=== PATIENT | male | born 1985 | race Caucasian/White ===

== ENCOUNTER 2019-01-28 16:18 | Emergency (ER) | payer OTHER ==
[2019-01-28 16:36] VITALS: BP 138/79; PULSE 80; RESP 18; TEMP 98
[2019-01-28] MEDS ORDERED: PROPARACAINE 0.5% OPHTH DROPS 15 ML BTL LEFT EYE STA (19:07)
[2019-01-28] MEDS ORDERED: ACETAMINOPHEN TAB 500 MG TAB PO STA (20:04)
[2019-01-28] MEDS ORDERED: ERYTHROMYCIN 5 MG/GM OPHTH OINT 3.5 GM TUBE BOTH EYES STA (20:04)
[2019-01-28] MEDS ORDERED: IBUPROFEN 600 MG STARTER PACK 4 TAB BTL PO STA (20:04)
--- NOTE | 2019-01-28 20:11 | ED ---
Eye Problem HPI - General Chief complaint: Eye Problems Stated complaint: Metal in eye-[facility] Time Seen by Provider: 01/28/19 19:07 Source: patient, RN notes reviewed, old records reviewed Mode of arrival: ambulatory Limitations: no limitations - History of Present Illness Initial comments: Pt is a 33 year old male with piece of metal in L eye from work. Patient reports that [facility] was unable to get piece of metal out today. Denies visual changes. - Related Data Previous Rx's Medication Instructions Recorded Ibuprofen [Motrin] 600 mg PO Q6HR PRN #20 tab 02/22/16 Erythromycin Ophth Oint [Romycin 1 applic LEFT EYE QID #1 gm 01/28/19 Ophth Oint] Allergies Allergy/AdvReac Type Severity Reaction Status Date / Time No Known Allergies Allergy Verified 01/28/19 16:31 Review of Systems ROS Statement: Those systems with pertinent positive or pertinent negative responses have been documented in the HPI. ROS Other: All systems not noted in ROS Statement are negative. Past Medical History Past Medical History: No Reported History History of Any Multi-Drug Resistant Organisms: None Reported Past Surgical History: Hernia Repair, Orthopedic Surgery Additional Past Surgical History / Comment(s): hiatal hernia Past Psychological History: No Psychological Hx Reported Smoking Status: Never smoker Past Alcohol Use History: None Reported Past Drug Use History: None Reported General Exam Limitations: no limitations General appearance: alert, in no apparent distress Head exam: Present: atraumatic, normocephalic, normal inspection Eye exam: Present: normal appearance, PERRL, EOMI, conjunctival injection (L eye. foriegn body at 6 oclock. ). Absent: scleral icterus, periorbital swelling Course Vital Signs 01/28/19 16:32 Temperature 98 F Pulse Rate 80 Respiratory 18 Rate Blood Pressure 138/79 O2 Sat by Pulse 98 Oximetry Medical Decision Making - Medical Decision Making Foreign body was removed easily with jagdish brush. Discussed optho follow up and using antibiotic ointment. Disposition Clinical Impression: Eye foreign body Disposition: HOME SELF-CARE Condition: Good Instructions (If sedation given, give patient instructions): Eye Foreign Body (ED) Additional Instructions: Follow-up with ophthalmology. Return to the emergency department if any alarming signs or symptoms occur. Prescriptions: Erythromycin Ophth Oint [Romycin Ophth Oint] 1 applic LEFT EYE QID #1 gm Is patient prescribed a controlled substance at d/c from ED?: No Referrals: Yogi Randhawa MD [Primary Care Provider] - 1-2 days Darwin Uribe MD [STAFF PHYSICIAN] - 1-2 days Time of Disposition: 20:11
== END 2019-01-28 20:45 | disposition home or self-care (01) ==
LOC: EC 16:18
DX: T15.92XA Foreign body on external eye, part unspecified, left eye, initial encounter (principal); Y92.69 Other specified industrial and construction area as the place of occurrence of the external cause; Y99.0 Civilian activity done for income or pay
CPT/HCPCS: 65205; 99284

== ENCOUNTER 2021-01-15 17:56 | Emergency (ER) | payer OTHER ==
[2021-01-15 18:21] VITALS: BP 113/77; PULSE 81; RESP 2; TEMP 98.3
[2021-01-15] MEDS ORDERED: LIDOCAINE 1% INJ 10MG/ML (20 ML MDV) SQ ONE (19:11)
[2021-01-15] MEDS ORDERED: BACITRACIN ZINC 500 UNIT/GM OINT 28.4 GM TUBE TOPICAL ONE (19:35)
--- NOTE | 2021-01-15 19:38 | ED ---
Wound/Laceration HPI - General Chief Complaint: Wound/Laceration Stated Complaint: [facility]-finger lac Time Seen by Provider: 01/15/21 19:02 Source: patient, RN notes reviewed Mode of arrival: ambulatory Limitations: no limitations - History of Present Illness Initial Comments: 35-year-old male presents emergency Department with chief complaint of right hand finger laceration. Patient states that he was cutting a metal band states that he cut through his leather glove. Patient has a laceration to his second digit. His tetanus is up-to-date. Patient states his pain over the area of glass full range of motion. Patient states there is mild bleeding no other complaints - Related Data Previous Rx's Medication Instructions Recorded Ibuprofen [Motrin] 600 mg PO Q6HR PRN #20 tab 02/22/16 Erythromycin Ophth Oint [Romycin 1 applic LEFT EYE QID #1 gm 01/28/19 Ophth Oint] Allergies Allergy/AdvReac Type Severity Reaction Status Date / Time No Known Allergies Allergy Verified 01/15/21 18:21 Review of Systems ROS Statement: Those systems with pertinent positive or pertinent negative responses have been documented in the HPI. ROS Other: All systems not noted in ROS Statement are negative. Past Medical History Past Medical History: No Reported History History of Any Multi-Drug Resistant Organisms: None Reported Past Surgical History: Hernia Repair, Orthopedic Surgery Additional Past Surgical History / Comment(s): hiatal hernia Past Psychological History: No Psychological Hx Reported Smoking Status: Never smoker Past Alcohol Use History: Occasional Past Drug Use History: None Reported General Exam Limitations: no limitations General appearance: alert, in no apparent distress Head exam: Present: atraumatic, normocephalic, normal inspection Respiratory exam: Present: normal lung sounds bilaterally. Absent: respiratory distress, wheezes, rales, rhonchi, stridor Cardiovascular Exam: Present: regular rate, normal rhythm, normal heart sounds. Absent: systolic murmur, diastolic murmur, rubs, gallop, clicks Extremities exam: Present: other (Right hand second digit dorsal surface there is an irregular flap laceration that is 3 cm in total length, patient's full range of motion no tendon involvement) Course Vital Signs 01/15/21 18:18 Temperature 98.3 F Pulse Rate 81 Respiratory 2 L Rate Blood Pressure 113/77 O2 Sat by Pulse 98 Oximetry Procedures - Laceration Laceration #1 Consent Obtained: verbal consent Indication: laceration Site: hand ( Right hand second digit) Size (cm): 3 Description: flap, irregular Anesthetic Used: lidocaine 1%, without epi Anesthesia Technique: local infiltration Amount (mls): 3 Pre-repair: wound explored, irrigated extensively, deep structures intact Type of Sutures: nylon Size of Sutures: 4-0 Number of Sutures: 6 Patient Tolerated Procedure: well, no complications Medical Decision Making - Medical Decision Making [address] patient's full range of motion no tendon involvement have a recheck in 24 hours with [facility] return parameters were discussed. Disposition Clinical Impression: Laceration of finger, right Disposition: HOME SELF-CARE Condition: Stable Instructions (If sedation given, give patient instructions): Care For Your Sti tches (ED), Finger Laceration (ED) Additional Instructions: Have sutures removed in 10 days.Please return to the Emergency Department if symptoms worsen or any other concerns.. Is patient prescribed a controlled substance at d/c from ED?: No Referrals: Yogi Randhawa MD [Primary Care Provider] - 1-2 days Time of Disposition: 19:38
[2021-01-15] MEDS ORDERED: BACITRACIN OINT 1 EACH PACKET TOPICAL ONE (19:45)
== END 2021-01-15 19:56 | disposition home or self-care (01) ==
LOC: EC 17:56
DX: S61.210A Laceration without foreign body of right index finger without damage to nail, initial encounter (principal); W27.8XXA Contact with other nonpowered hand tool, initial encounter
CPT/HCPCS: 99282; 96372; 12002; J2001

== ENCOUNTER → 2021-01-25 | Outpatient (CLI) | payer OTHER ==
--- NOTE | 2021-01-25 17:34 | XR ---
EXAMINATION TYPE: XR hand complete RT DATE OF EXAM: 01/25/2021 COMPARISON: None HISTORY: Laceration proximal interphalangeal joint right index finger TECHNIQUE: Three-view right hand FINDINGS: Soft tissue injuries over the distal right index finger. No acute fractures evident. No rad iopaque foreign body within the index finger is evident. There may be a radiopaque foreign body withi n the subcutaneous tissues of the dorsal thumb. IMPRESSION: 1. Soft tissue injury at the distal index finger. No radiopaque foreign body at this level is eviden t. 2. No acute osseous abnormalities. 3. Chronic radiopaque foreign body may be over the dorsum of the proximal phalanx right thumb
== END | disposition home or self-care (01) ==
LOC: RADXRMAIN 17:13
PROVIDERS: ATTEND Emergency Medicine
DX: S61.211A Laceration without foreign body of left index finger without damage to nail, initial encounter (principal)

== ENCOUNTER 2021-05-17 16:18 | Emergency (ER) | payer OTHER ==
[2021-05-17 18:14] VITALS: TEMP 97.6
[2021-05-17] MEDS ORDERED: IBUPROFEN 600 MG STARTER PACK 4 TAB BTL PO STA (19:19)
[2021-05-17] MEDS ORDERED: CEPHALEXIN 500MG STARTER PACK 4 CAP BTL PO STA (19:19)
--- NOTE | 2021-05-17 20:45 | XR ---
EXAMINATION TYPE: XR foot limited RT DATE OF EXAM: 05/17/2021 COMPARISON: NONE HISTORY: 36 years Male. STUDY INDICATION GIVEN: Possible foreign body, lateral aspect plantar . TECHNIQUE: Frontal lateral radiographs of the right foot IMPRESSION: No radiopaque foreign bodies are appreciated in the area of concern or the rest of the foot. No acute osseous or articular abnormalities appreciated. Distal tibial cortical irregularity reflective of prior fracture and hardware.
[2021-05-17 20:56] VITALS: BP 136/82; PULSE 86; RESP 16
--- NOTE | 2021-05-17 21:01 | ED ---
Wound/Laceration HPI - General Source: patient Mode of arrival: ambulatory Limitations: no limitations <Tatiana Hills - Last Filed: 05/17/21 21:53> <Luna Flynn - Last Filed: 05/19/21 00:34> - General Chief Complaint: Wound/Laceration Stated Complaint: Brass shaving in R foot, [facility] Time Seen by Provider: 05/17/21 19:04 - History of Present Illness Initial Comments: 36 year-old male patient presents for evaluation of pain and redness to the right foot. States he believes he has a metal shaving stuck in the foot. States there were some on his sock two days ago. He works with metal shavings and wears boots. He reports pain to the lateral aspect of the right foot. Denies any fever or chills. Denies nausea or vomiting. States his last tetanus vaccine was 3-5 years ago. (Tatiana Hills) - Related Data Previous Rx's Medication Instructions Recorded Ibuprofen [Motrin] 600 mg PO Q6HR PRN #20 tab 02/22/16 Erythromycin Ophth Oint [Romycin 1 applic LEFT EYE QID #1 gm 01/28/19 Ophth Oint] Cephalexin [Keflex] 500 mg PO Q6H #40 cap 05/17/21 Ibuprofen [Motrin] 600 mg PO Q8HR PRN #30 tab 05/17/21 Allergies Allergy/AdvReac Type Severity Reaction Status Date / Time No Known Allergies Allergy Verified 05/17/21 18:12 Review of Systems ROS Other: All systems not noted in ROS Statement are negative. <Tatiana Hills - Last Filed: 05/17/21 21:53> ROS Other: All systems not noted in ROS Statement are negative. <Luna Flynn - Last Filed: 05/19/21 00:34> ROS Statement: Those systems with pertinent positive or pertinent negative responses have been documented in the HPI. Past Medical History Past Medical History: No Reported History History of Any Multi-Drug Resistant Organisms: None Reported Past Surgical History: Hernia Repair, Orthopedic Surgery Additional Past Surgical History / Comment(s): hiatal hernia Past Psychological History: No Psychological Hx Reported Smoking Status: Never smoker Past Alcohol Use History: Occasional Past Drug Use History: None Reported <Tatiana Hills - Last Filed: 05/17/21 21:53> General Exam Limitations: no limitations General appearance: alert, in no apparent distress, other (This is a well- developed, well-nourished adult male patient in no acute distress. ) Respiratory exam: Present: normal lung sounds bilaterally. Absent: respiratory distress, wheezes, rales, rhonchi, stridor Cardiovascular Exam: Present: regular rate, normal rhythm, normal heart sounds. Absent: systolic murmur, diastolic murmur, rubs, gallop, clicks Extremities exam: Present: full ROM, normal capillary refill, other (There is area of erythema, soft tissue swelling, tenderness to the right lateral foot near the plantar surface. Skin is otherwise pink, warm, dry. Cap refill less than 3 seconds. Pedal and posttibial pulses 2+.). Absent: tenderness, pedal edema, joint swelling, calf tenderness Neurological exam: Present: alert, oriented X3, CN II-XII intact Psychiatric exam: Present: normal affect, normal mood Skin exam: Present: warm, dry, intact, normal color. Absent: rash <Tatiana Hills - Last Filed: 05/17/21 21:53> Course Vital Signs 05/17/21 05/17/21 18:12 20:14 Temperature 97.6 F Pulse Rate 82 86 Respiratory 18 16 Rate Blood Pressure 142/95 136/82 O2 Sat by Pulse 98 97 Oximetry Medical Decision Making - Radiology Data Radiology results: report reviewed, image reviewed <Tatiana Hills - Last Filed: 05/17/21 21:53> <Luna Flynn - Last Filed: 05/19/21 00:34> - Medical Decision Making 36-year-old male patient presenting for evaluation of area of redness, swelling, pain to the right foot. 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 Physical examination did reveal soft tissue swelling, erythema, tenderness over the right lateral foot near the plantar surface. X-ray was obtained and showed no evidence for foreign body. I do not see evidence of foreign body near the surface. We started on antibiotics instructed to do foot soaks with Epsom salts and hot water. He is instructed to follow-up with litigation specialist for further evaluation as soon as possible. Return parameters were discussed in detail. He verbalizes understanding and agrees with this plan. Case discussed with my attending Dr. Flynn. (Tatiana Hills) I was available for consultation in the emergency department. The history and physical exam were done by the midlevel provider. I was consulted for this patients care. I reviewed the case with the midlevel provider and based on their presentation of the patient, I agree with the assessment, medical decision making and plan of care as documented. Chart was dictated using [employer] dictation software. Attempts were made to correct any dictation errors however some typographical errors may persist. (Luna Flynn) - Radiology Data 2 views of the right foot are obtained. Report reviewed in its entirety. Impression by Dr. Garcia shows no radiopaque foreign bodies are appreciated in the area of concern of the rest of the foot. No osseous articular abnormalities appreciated. Distal tibia cortical irregularity reflective of prior fracture or hardware. (Tatiana Hills) Disposition Is patient prescribed a controlled substance at d/c from ED?: No Time of Disposition: 21:00 <Tatiana Hills - Last Filed: 05/17/21 21:53> <Luna Flynn - Last Filed: 05/19/21 00:34> Clinical Impression: Cellulitis of right foot, Foreign body in right foot Disposition: HOME SELF-CARE Condition: Good Instructions (If sedation given, give patient instructions): Soft Tissue F oreign Body (ED), Cellulitis (ED) Additional Instructions: Apply warm compresses over the area. Complete antibiotic prescription and full. Take Tylenol Motrin for pain control. Follow-up with litigation specialist for further evaluation as soon as possible. Return for any new, worsening, or concerning symptoms. Prescriptions: Cephalexin [Keflex] 500 mg PO Q6H #40 cap Ibuprofen [Motrin] 600 mg PO Q8HR PRN #30 tab PRN Reason: Pain Referrals: Yogi Randhawa MD [Primary Care Provider] - 1-2 days Damon San MD [STAFF PHYSICIAN] - 1-2 days
== END 2021-05-17 21:19 | disposition home or self-care (01) ==
LOC: EC 16:18
DX: S90.851A Superficial foreign body, right foot, initial encounter (principal); L03.115 Cellulitis of right lower limb; W45.8XXA Other foreign body or object entering through skin, initial encounter
CPT/HCPCS: 99283

== ENCOUNTER 2023-01-03 19:31 | Emergency (ER) | payer OTHER ==
[2023-01-03 19:39] VITALS: BP 132/82; PULSE 75; RESP 20; TEMP 97.7
[2023-01-03] MEDS ORDERED: ORPHENADRINE 30 MG/ML 2 ML VIAL IM STA (19:55)
[2023-01-03] MEDS ORDERED: DEXAMETHASONE SOD PHOSPHATE 10 MG/ML 1 ML VIAL IM STA (19:55)
[2023-01-03] MEDS ORDERED: KETOROLAC 15 MG/ML 1 ML VIAL IM STA (19:55)
[2023-01-03] MEDS ORDERED: LIDOCAINE 5% PATCH TOPICAL SCH (20:00)
--- NOTE | 2023-01-03 20:48 | CT ---
EXAMINATION TYPE: CT lumbar spine wo con DATE OF EXAM: 01/03/2023 COMPARISON: None HISTORY: back pain, fall CT DLP: 1119.6 mGycm CONTRAST: None TECHNIQUE: CT of the lumbar spine is performed on a spiral scan at 3 mm thick sections. Reconstructed images are performed in the coronal and sagittal planes. FINDINGS: Vertebral body alignment is normal. Disc heights are preserved. Vertebral body heights are preserved. There is some minimal diffuse disc bulging present L2-L3 through L5-S1 with anterior thecal sac conta ct. No significant thecal sac compression is evident. No focal protrusion or focal disc herniation is evident. IMPRESSION: Minimal disc bulges with anterior thecal sac contact. No spinal canal stenosis or focal disc herniati ons are identified.
--- NOTE | 2023-01-03 21:34 | ED ---
Fall HPI - General Chief Complaint: Fall Stated Complaint: [facility] Fall, Lower back pain Time Seen by Provider: 01/03/23 19:42 Source: patient Mode of arrival: ambulatory - History of Present Illness Initial Comments: 37-year-old male presenting with chief complaint of back pain. 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 His low back landed on the hi-lo. Patient was wearing a helmet at the time, no loss of consciousness or blood thinners. No headache or neck pain. He is only complaining of low back pain with pain radiating down the bilateral lower extremities. No loss of bowel or bladder control or saddle paresthesia. No nausea, vomiting, dizziness, chest pain, difficulty breathing, abdominal pain, hematuria, weakness. - Related Data Previous Rx's Medication Instructions Recorded Ibuprofen [Motrin] 600 mg PO Q6HR PRN #20 tab 02/22/16 Erythromycin Ophth Oint [Romycin 1 applic LEFT EYE QID #1 gm 01/28/19 Ophth Oint] Cephalexin [Keflex] 500 mg PO Q6H #40 cap 05/17/21 Ibuprofen [Motrin] 600 mg PO Q8HR PRN #30 tab 05/17/21 Cyclobenzaprine [Flexeril] 10 mg PO TID PRN #21 tab 01/03/23 Allergies Allergy/AdvReac Type Severity Reaction Status Date / Time No Known Allergies Allergy Verified 05/17/21 18:12 Review of Systems ROS Statement: Those systems with pertinent positive or pertinent negative responses have been documented in the HPI. ROS Other: All systems not noted in ROS Statement are negative. Past Medical History Past Medical History: No Reported History History of Any Multi-Drug Resistant Organisms: None Reported Past Surgical History: Hernia Repair, Orthopedic Surgery Additional Past Surgical History / Comment(s): hiatal hernia Past Psychological History: No Psychological Hx Reported Smoking Status: Never smoker Past Alcohol Use History: Occasional Past Drug Use History: None Reported General Exam Limitations: no limitations General appearance: alert, in no apparent distress Head exam: Present: atraumatic, normocephalic, normal inspection Eye exam: Present: normal appearance, EOMI. Absent: scleral icterus, periorbital swelling Neck exam: Present: normal inspection, full ROM. Absent: tenderness Respiratory exam: Present: normal lung sounds bilaterally. Absent: respiratory distress, wheezes, rales, rhonchi, stridor Cardiovascular Exam: Present: regular rate, normal rhythm, normal heart sounds. Absent: systolic murmur, diastolic murmur, rubs, gallop, clicks GI/Abdominal exam: Present: soft. Absent: distended, tenderness, guarding, rebound, rigid Extremities exam: Present: normal inspection, full ROM Back exam: Present: normal inspection, paraspinal tenderness. Absent: vertebral tenderness Neurological exam: Present: alert, oriented X3, CN II-XII intact Psychiatric exam: Present: normal affect, normal mood Skin exam: Present: warm, dry, intact, normal color. Absent: rash Course Vital Signs 01/03/23 19:34 Temperature 97.7 F Pulse Rate 75 Respiratory 20 Rate Blood Pressure 132/82 O2 Sat by Pulse 98 Oximetry Medical Decision Making - Medical Decision Making Was pt. sent in by a medical professional or institution (, PA, HOTEL VALET ATTENDANT, urgent care, hospital, or long-term...) When possible be specific @ -No Did you speak to anyone other than the patient for history (EMS, parent, family, police, friend...)? What history was obtained from this source @ -No Did you review nursing and triage notes (agree or disagree)? Why? @ -I reviewed and agree with nursing and triage notes Were old charts reviewed (outside hosp., previous admission, EMS record, old EKG, old radiological studies, urgent care reports/EKG's, long-term records)? Report findings @ -No old charts were reviewed Differential Diagnosis (chest pain, altered mental status, abdominal pain women, abdominal pain men, vaginal bleeding, weakness, fever, dyspnea, syncope, headache, dizziness, GI bleed, back pain, seizure, CVA, palpatations, mental health, musculoskeletal)? @ - [facility] Differential Back Pain: Strain, zoster, cauda equina syndrome, epidural abscess, vertebral osteomyelitis, discitis, fracture, subluxation, disc herniation, DJD, spinal stenosis, dissection, AAA, pancreatitis, peptic ulcer disease, pyelonephritis, kidney stone this is not meant to be an all-inclusive list. EKG interpreted by me (3pts min.). @ -As above X-rays interpreted by me (1pt min.). @ -None done CT interpreted by me (1pt min.). @ -CT shows minimal disc bulges with anterior thecal sac contact. No spinal canal stenosis or focal disc herniations are identified U/S interpreted by me (1pt. min.). @ -None done What testing was considered but not performed or refused? (CT, X-rays, U/S, labs)? Why? @ -None What meds were considered but not given or refused? Why? @ -None Did you discuss the management of the patient with other professionals (professionals i.e. DrShira, PA, HOTEL VALET ATTENDANT, lab, RT, psych nurse, social science teacher, resistor inspector, teacher, correction officer penitentiary, watch caser)? Give summary @ -No Was smoking cessation discussed for >3mins.? @ -No Was critical care preformed (if so, how long)? @ -No Were there social determinants of health that impacted care today? How? (Homelessness, low income, unemployed, alcoholism, drug addiction, transportation, low edu. Level, literacy, decrease access to med. care, skilled nursing, rehab)? @ -No Was there de-escalation of care discussed even if they declined (Discuss DNR or withdrawal of care, Hospice)? DNR status @ -No What co-morbidities impacted this encounter? (DM, HTN, Smoking, COPD, CAD, Cancer, CVA, ARF, Chemo, Hep., AIDS, mental health diagnosis, sleep apnea, morbid obesity)? @ -None Was patient admitted / discharged? Hospital course, mention meds given and route, prescriptions, significant lab abnormalities, going to OR and other pertinent info. @ -37-year-old male presenting with chief complaint of back pain after injury at work. Patient was wearing a helmet when he fell backwards, no loss of consciousness or blood thinners. No red flag symptoms. No midline tenderness on exam. CT of lumbar spine shows no disc herniation or compression fractures. As patient is educated on supportive management at home. On reassessment after Norflex, Toradol, lidocaine patch she reports improvement in symptoms. Follow- up with PCP. Report back to ER with any new or worsening symptoms. Discussed return parameters and answered all questions. Patient conveyed verbal understanding and agreed to the plan. I discussed this case in detail with my attending Dr. Sandhu Undiagnosed new problem with uncertain prognosis? @ -No Drug Therapy requiring intensive monitoring for toxicity (Heparin, Nitro, Insulin, Cardizem)? @ -No Were any procedures done? @ -No Diagnosis/symptom? @ -Low back strain Acute, or Chronic, or Acute on Chronic? @ -Acute Uncomplicated (without systemic symptoms) or Complicated (systemic symptoms)? @ -Uncomplicated Side effects of treatment? @ -No Exacerbation, Progression, or Severe Exacerbation? @ -No Poses a threat to life or bodily function? How? (Chest pain, [place], [place], pneumonia, PE, COPD, DKA, ARF, appy, cholecystitis, CVA, Diverticulitis, Homicidal, Suicidal, threat to staff... and all critical care pts) @ -No Disposition Clinical Impression: Lumbar strain Disposition: HOME SELF-CARE Condition: Good Instructions (If sedation given, give patient instructions): Low Back Strain (ED), Lower Back Exercises (ED) Additional Instructions: Follow-up with PCP. Report back to ER with any new or worsening symptoms. Take Motrin and Tylenol stated for pain control. Take medication as prescribed. Do not take cyclobenzaprine before driving or operating heavy machinery as it may cause drowsiness Prescriptions: Cyclobenzaprine [Flexeril] 10 mg PO TID PRN #21 tab PRN Reason: Spasms Is patient prescribed a controlled substance at d/c from ED?: No Referrals: Yogi Randhawa MD [Primary Care Provider] - 1-2 days Time of Disposition: 21:34
== END 2023-01-03 22:00 | disposition home or self-care (01) ==
LOC: EC 19:31
DX: S39.012A Strain of muscle, fascia and tendon of lower back, initial encounter (principal); M51.26 Other intervertebral disc displacement, lumbar region; W18.30XA Fall on same level, unspecified, initial encounter
CPT/HCPCS: 72131; 99284; 96372 ×3; J1100; J2360; J1885

== ENCOUNTER → 2023-01-09 | Outpatient (CLI) | payer OTHER ==
--- NOTE | 2023-01-09 17:16 | XR ---
EXAMINATION TYPE: XR thoracic spine complete DATE OF EXAM: 01/09/2023 CLINICAL HISTORY: pain TECHNIQUE: Frontal, lateral, and swimmer's view of thoracic spine are obtained. COMPARISON: None. FINDINGS: Thoracic spine show satisfactory alignment without evidence of acute fracture or dislocatio n. Vertebral body heights are preserved. Disc spaces are well preserved. Visualized ribs are unrem arkable. IMPRESSION: No acute fracture or dislocation is seen in the thoracic spine. ICD 10 NO FRACTURE, INIT IAL EVALUATION
== END | disposition home or self-care (01) ==
LOC: RADXRMAIN 16:15
PROVIDERS: ATTEND Physician Assistant
DX: S20.221A Contusion of right back wall of thorax, initial encounter (principal)
CPT/HCPCS: 72072

== ENCOUNTER 2024-01-24 23:58 | Emergency (ER) | payer OTHER ==
[2024-01-25 00:03] VITALS: RESP 18; TEMP 97.6
--- NOTE | 2024-01-25 00:56 | ED ---
General Adult HPI - General Chief complaint: Extremity Injury, Upper Stated complaint: Fall, Left Wrist Injury Time Seen by Provider: 01/25/24 00:07 Source: patient, RN notes reviewed Mode of arrival: ambulatory Limitations: no limitations - History of Present Illness Initial comments: 38-year-old male presents to the emergency department for evaluation of left wrist injury. Patient states that he was cleaning out his car and stepped backwards. He states that he tripped over the cord to the vacuum causing him to fall backwards. He states that he landed on his outstretched hand. He states that since then he has had decreased range of motion and pain to the left wrist. He also notes some swelling to this area. Denies numbness, tingling. Denies any other injury. - Related Data Previous Rx's Medication Instructions Recorded Ibuprofen [Motrin] 600 mg PO Q6HR PRN #20 tab 02/22/16 Erythromycin Ophth Oint [Romycin 1 applic LEFT EYE QID #1 gm 01/28/19 Ophth Oint] Cephalexin [Keflex] 500 mg PO Q6H #40 cap 05/17/21 Ibuprofen [Motrin] 600 mg PO Q8HR PRN #30 tab 05/17/21 Cyclobenzaprine [Flexeril] 10 mg PO TID PRN #21 tab 01/03/23 Ibuprofen [Motrin] 800 mg PO Q8HR #15 tab 01/25/24 Allergies Allergy/AdvReac Type Severity Reaction Status Date / Time No Known Allergies Allergy Verified 01/25/24 00:02 Review of Systems ROS Statement: Those systems with pertinent positive or pertinent negative responses have been documented in the HPI. ROS Other: All systems not noted in ROS Statement are negative. Past Medical History Past Medical History: No Reported History History of Any Multi-Drug Resistant Organisms: None Reported Past Surgical History: Hernia Repair, Orthopedic Surgery Additional Past Surgical History / Comment(s): hiatal hernia Past Psychological History: No Psychological Hx Reported Smoking Status: Never smoker Past Alcohol Use History: Occasional Past Drug Use History: None Reported General Exam Limitations: no limitations General appearance: alert, in no apparent distress Head exam: Present: atraumatic, normocephalic, normal inspection Eye exam: Present: normal appearance, PERRL, EOMI. Absent: scleral icterus, conjunctival injection, periorbital swelling ENT exam: Present: normal exam, mucous membranes moist Respiratory exam: Present: normal lung sounds bilaterally. Absent: respiratory distress, wheezes, rales, rhonchi, stridor Cardiovascular Exam: Present: regular rate, normal rhythm, normal heart sounds. Absent: systolic murmur, diastolic murmur, rubs, gallop, clicks Extremities exam: Present: tenderness, normal capillary refill, other (radial pulses 2+). Absent: full ROM (Decreasing to motion at the left wrist due to pain), pedal edema, joint swelling, calf tenderness Neurological exam: Present: alert, oriented X3 Psychiatric exam: Present: normal affect, normal mood Skin exam: Present: warm, dry, intact, normal color. Absent: rash Course Vital Signs 01/25/24 01/25/24 00:01 02:05 Temperature 97.6 F Pulse Rate 77 75 Respiratory 18 18 Rate Blood Pressure 125/81 149/98 O2 Sat by Pulse 98 99 Oximetry Medical Decision Making - Medical Decision Making Was pt. sent in by a medical professional or institution (, PA, BUNDLE CUTTER, urgent care, hospital, or long-term...) When possible be specific @ -No Did you speak to anyone other than the patient for history (EMS, parent, family, police, friend...)? What history was obtained from this source @ -No Did you review nursing and triage notes (agree or disagree)? Why? @ -I reviewed and agree with nursing and triage notes Were old charts reviewed (outside hosp., previous admission, EMS record, old EKG, old radiological studies, urgent care reports/EKG's, long-term records)? Report findings @ -No old charts were reviewed Differential Diagnosis (chest pain, altered mental status, abdominal pain women, abdominal pain men, vaginal bleeding, weakness, fever, dyspnea, syncope, headache, dizziness, GI bleed, back pain, seizure, CVA, palpatations, mental health, musculoskeletal)? @ -Differential Musculoskeletal Muscular strain, contusion, ligament sprain, fracture, arthritis, septic arthritis, bursitis, cellulitis, muscle spasm, nerve compression, DVT, arterial occlusion, herpes zoster, electrolyte abnormality, tumor.... This is not meant to be in all inclusive list EKG interpreted by me (3pts min.). @ -None X-rays interpreted by me (1pt min.). @ -X-ray of the left wrist obtained showing distal radius and ulnar fracture without displacement CT interpreted by me (1pt min.). @ -None done U/S interpreted by me (1pt. min.). @ -None done What testing was considered but not performed or refused? (CT, X-rays, U/S, labs)? Why? @ -None What meds were considered but not given or refused? Why? @ -None Did you discuss the management of the patient with other professionals (professionals i.e. , PA, BUNDLE CUTTER, lab, RT, psych nurse, clinical social work aide, environmental lawyer, teacher, commissary officer, case management specialist)? Give summary @ -No Was smoking cessation discussed for >3mins.? @ -No Was critical care preformed (if so, how long)? @ -No Were there social determinants of health that impacted care today? How? (Homelessness, low income, unemployed, alcoholism, drug addiction, transportation, low edu. Level, literacy, decrease access to med. care, long term, rehab)? @ -No Was there de-escalation of care discussed even if they declined (Discuss DNR or withdrawal of care, Hospice)? DNR status @ -No What co-morbidities impacted this encounter? (DM, HTN, Smoking, COPD, CAD, Cancer, CVA, ARF, Chemo, Hep., AIDS, mental health diagnosis, sleep apnea, morbid obesity)? @ -None Was patient admitted / discharged? Hospital course, mention meds given and route, prescriptions, significant lab abnormalities, going to OR and other pertinent info. @ -Discharge. Patient presented to the emergency department for evaluation of left wrist injury. X-rays obtained revealing distal radius and ulna fracture without displacement. Patient was placed in a splint. Advised follow-up to orthopedics. Patient is understanding agreeable plan. Patient stable at time of discharge. Case discussed with Dr. Price Undiagnosed new problem with uncertain prognosis? @ -No Drug Therapy requiring intensive monitoring for toxicity (Heparin, Nitro, Insulin, Cardizem)? @ -No Were any procedures done? @ -No Diagnosis/symptom? @ -Wrist fracture Acute, or Chronic, or Acute on Chronic? @ -acute Uncomplicated (without systemic symptoms) or Complicated (systemic symptoms)? @ -uncomplicated Side effects of treatment? @ -No Exacerbation, Progression, or Severe Exacerbation? @ -No Poses a threat to life or bodily function? How? (Chest pain, USA, MS, pneumonia, PE, COPD, DKA, ARF, appy, cholecystitis, CVA, Diverticulitis, Homicidal, Suicidal, threat to staff... and all critical care pts) @ -No Disposition Clinical Impression: Distal radius fracture Disposition: HOME SELF-CARE Condition: Stable Instructions (If sedation given, give patient instructions): Wrist Fracture in Adults (ED) Additional Instructions: Please follow up with orthopedics. Return to the emergency department for new or worsening symptoms. Prescriptions: Ibuprofen [Motrin] 800 mg PO Q8HR #15 tab Is patient prescribed a controlled substance at d/c from ED?: No Referrals: Yogi Randhawa MD [Primary Care Provider] - 1-2 days Gume Hester DO [Doctor of Osteopathic Medicine] - 1-2 days
--- NOTE | 2024-01-25 01:30 | XR ---
EXAM: XR Left Wrist, 2 Views CLINICAL HISTORY: ITS.REASON XR Reason: fall TECHNIQUE: Frontal and lateral views of the left wrist. COMPARISON: No previous studies. FINDINGS: Bones/joints: Acute transverse nondisplaced fracture of the distal left radius is noted. Acute transverse nondisplaced fracture of the ulnar styloid. No dislocation. Soft tissues: Soft tissue swelling is noted. No radiopaque foreign body. IMPRESSION: 1. Acute nondisplaced fracture of the distal left radius and ulnar styloid. 2. Soft tissue swelling.
[2024-01-25] MEDS: IBUPROFEN 600 MG STARTER PACK 4 TAB BTL PO STA (02:06)
[2024-01-25 02:08] VITALS: BP 149/98; PULSE 75
== END 2024-01-25 02:05 | disposition home or self-care (01) ==
LOC: EC 23:58
DX: S52.502A Unspecified fracture of the lower end of left radius, initial encounter for closed fracture (principal); S52.615A Nondisplaced fracture of left ulna styloid process, initial encounter for closed fracture; W01.0XXA Fall on same level from slipping, tripping and stumbling without subsequent striking against object, initial encounter
CPT/HCPCS: 29125; 99283

== ENCOUNTER → 2024-11-30 | Outpatient (CLI) | payer OTHER ==
[2024-11-30 18:13] LABS: Basophils # (A) 0.07 X 10*3/uL (0.00-0.10); Basophils % (A) 1.5 %; Eosinophils # (A) 0.18 X 10*3/uL (0.04-0.35); Eosinophils % (A) 3.9 %; HCT 46.8 % (39.6-50.0); HGB 15.4 g/dL (13.0-17.0); Lymphocytes # (A) 1.05 X 10*3/uL (0.90-5.00); Lymphocytes % (A) 22.9 %; MCH 29.1 pg (27.0-32.0); MCHC 32.9 g/dL (32.0-37.0); MCV 88.5 FL (80.0-97.0); Mean Platelet Volume 9.4 FL (9.5-12.2); Monocytes # (A) 0.46 X 10*3/uL (0.20-1.00); NRBC Per 100 WBC 0 X 10*3/uL (0.00-0.01); Neutrophils # (A) 2.81 X 10*3/uL (1.80-7.70); Neutrophils % (A) 61.5 %; Platelet Count 314 X 10*3/uL (140-440); RBC 5.29 X 10*6/uL (4.40-5.60); RDW 12.9 % (11.5-14.5); WBC 4.58 X 10*3/uL (4.50-10.00)
[2024-11-30 18:58] LABS: ALT 44 U/L (10-49); AST 24 U/L (14-35); Albumin 4.2 g/dL (3.8-4.9); Albumin/Globulin Ratio 1.68 Ratio (1.60-3.17); Alkaline Phosphatase 71 U/L (41-126); BUN/Creat Ratio 16.67 Ratio (12.00-20.00); Calcium 9.4 mg/dL (8.7-10.3); Carbon Dioxide 24.9 mmol/L (21.6-31.8); Chloride 103 mmol/L (96-109); Globulin 2.5 g/dL (1.6-3.3); Glucose 90 mg/dL (70-110); LDL Cholesterol,Calculated 114.2 mg/dL (0.0-131.0); Potassium 4.7 mmol/L (3.5-5.5); Sodium 139 mmol/L (135-145); Total Bilirubin 0.3 mg/dL (0.3-1.2); Total Protein 6.7 g/dL (6.2-8.2); VLDL Calculation 11.22 mg/dL (5.00-40.00)
== END | disposition home or self-care (01) ==
LOC: LABWHC1 13:04
PROVIDERS: ATTEND Family Medicine
DX: Z00.00 Encounter for general adult medical examination without abnormal findings (principal)
CPT/HCPCS: 36415; 80053; 80061; 82306; 84443; 85025